=== PATIENT | female | born 2000 | race African-American/Black ===

== ENCOUNTER 2020-11-07 11:00 | Outpatient (CLI) | payer OTHER | END 2020-11-07 11:01 | disposition home or self-care (01) | LOC: CSHULT 11:00 | PROVIDERS: ATTEND Family Medicine | DX: Z34.82 Encounter for supervision of other normal pregnancy, second trimester (principal) | CPT/HCPCS: 76805 ==

== ENCOUNTER 2021-02-28 21:43 | Inpatient (IN) | payer OTHER ==
[2021-02-28] MEDS ORDERED: NS w/ Oxytocin 30 units 500 ML IV SCH (22:03)
[2021-02-28] MEDS ORDERED: Lidocaine 1% (PF) 30 ML VIAL SC PRN (22:03)
[2021-02-28] MEDS ORDERED: Ondansetron PF 4 MG/2 ML Vial IVP PRN (22:03)
[2021-02-28] MEDS ORDERED: Acetaminophen 500 MG TAB PO PRN (22:03)
[2021-02-28] MEDS ORDERED: NS w/ Oxytocin 30 units 500 ML IVPB SCH (22:03)
[2021-02-28] MEDS ORDERED: Promethazine HCl 25 MG/ML VIAL IM PRN (22:03)
[2021-02-28] MEDS ORDERED: Ibuprofen 800 MG TAB PO PRN (22:03)
[2021-02-28] MEDS ORDERED: Misoprostol 200 MCG TAB PR PRN (22:03)
[2021-02-28] MEDS ORDERED: HYDROcodone/Acetaminophen 5/325 mg Tablet PO PRN (22:03)
[2021-02-28] MEDS ORDERED: hydrALAZINE 20 MG/ML VIAL SLOW IVP PRN (22:03)
[2021-02-28] MEDS ORDERED: Carboprost 250 MCG/ML AMP IM PRN (22:03)
[2021-02-28] MEDS ORDERED: Methylergonovine 0.2 MG/ML VIAL IM PRN (22:03)
[2021-02-28] MEDS ORDERED: Diphenoxylate HCl/Atropine Tablet PO PRN (22:03)
[2021-02-28] MEDS: Lactated Ringer's 1,000 ML IV SCH (22:20)
[2021-02-28 22:23] VITALS: BMI 26.6
[2021-02-28] MEDS ORDERED: Penicillin G Potassium 5 MILL.UNITS in Sodium Chloride 0.9% 100 ML IVPB SCH (23:00)
[2021-02-28 23:39] LABS: Hemoglobin 9.4 g/dL (12.0-15.5); Mean Corpuscular HGB CONC 31.9 g/dL (32.0-36.0); Mean Corpuscular Hemoglobin 22.7 pg (27.0-33.0); Mean Corpuscular Volume 71.1 fl (81.6-98.3); Mean Platelet Volume 12.7 fl (7.4-10.4); Platelet Count 202 10x3/uL (150-450); RBC Distribution Width 15.4 % (11.5-14.5); Red Blood Cell (RBC) Count 4.15 10x6/uL (3.90-5.03); White Blood Cell (WBC) Count 10.6 10x3/uL (3.5-10.5)
[2021-02-28] MEDS: Misoprostol 100 MCG TAB PO SCH (23:45)
[2021-02-28 23:57] LABS: Hep B Surf Ag Non-Reactive S/CO (NonReactive)
[2021-02-28 23:58] LABS: Syphilis Antibody Nonreactive (Nonreactive); Syphilis Antibody Index 0.08 S/CO (<1.00 Non-Reactive)
[2021-03-01 00:14] LABS: HBSAg Index 0.15 S/CO (0-0.99)
[2021-03-01] MEDS: Butorphanol Tartrate 1 MG/ML VIAL SLOW IVP PRN ×2 (00:42→04:24)
[2021-03-01] MEDS: Misoprostol 100 MCG TAB PO SCH ×2 (04:21→13:47)
[2021-03-01] MEDS: Penicillin G 2.5 MILL.units 2.5 MILL.UNITS in Premix Bag 1 BAG IVPB SCH ×2 (04:30→13:47)
[2021-03-01] MEDS ORDERED: Fentanyl 2 mcg/Bup 0.1% Cadd 100 ML ONE (05:22)
[2021-03-01] MEDS: Lactated Ringer's 1,000 ML IV SCH (06:15)
[2021-03-01] MEDS ORDERED: Acetaminophen 325 MG TAB PO PRN (06:26)
[2021-03-01] MEDS ORDERED: Lactated Ringer's 500 ML IV PRN (06:26)
[2021-03-01] MEDS ORDERED: Ondansetron PF 4 MG/2 ML Vial IVP PRN ×2 (06:26→08:47)
[2021-03-01] MEDS ORDERED: Naloxone HCl 0.4 mg/ml Vial IVP PRN ×2 (06:26)
[2021-03-01] MEDS ORDERED: ePHEDrine Sulfate 50 MG/10 ML VIAL SLOW IVP PRN (06:26)
[2021-03-01] MEDS ORDERED: Promethazine HCl 25 MG/ML VIAL IM PRN ×2 (06:26→08:47)
[2021-03-01] MEDS ORDERED: Hydrocerin (Eucerin) Cream 120 gm Jar TOP PRN (06:26)
[2021-03-01] MEDS ORDERED: diphenhydrAMINE 50 MG/ML VIAL IVP PRN (06:26)
[2021-03-01] MEDS: NS w/ Oxytocin 30 units 500 ML IV SCH ×2 (06:29→08:43)
[2021-03-01] MEDS ORDERED: Fentanyl 2 mcg/Bupivacaine 0.1% Cassette 100 ML EPIDURAL SCH (06:30)
[2021-03-01] MEDS ORDERED: Communication Order-Pharmacy FS SCH (06:30)
[2021-03-01] MEDS ORDERED: HYDROcodone/Acetaminophen 5/325 mg Tablet PO PRN (08:47)
[2021-03-01] MEDS ORDERED: Lanolin Ointment 7 GM TUBE TOP PRN (08:47)
[2021-03-01] MEDS ORDERED: Boostrix 0.5 ML (Tdap) VIAL IM ONE (08:47)
[2021-03-01] MEDS ORDERED: hydrALAZINE 20 MG/ML VIAL SLOW IVP PRN (08:47)
[2021-03-01] MEDS ORDERED: Milk Of Magnesia 30 ML UDCUP PO PRN (08:47)
[2021-03-01] MEDS ORDERED: Bisacodyl 10 MG SUPP PR PRN (08:47)
[2021-03-01] MEDS ORDERED: diphenhydrAMINE 25 MG CAP PO PRN (08:47)
[2021-03-01] MEDS ORDERED: Benzocaine-Menthol 82.5 ML CAN TOP PRN (08:47)
[2021-03-01] MEDS: HYDROcodone/Acetaminophen 5/325 mg Tablet PO PRN ×2 (10:47→19:54)
[2021-03-01] MEDS: Prenatal Vitamin 1 TAB PO SCH (11:05)
[2021-03-01] MEDS: Docusate Calcium (SURFAK) 240 MG CAP PO SCH ×2 (11:05→21:58)
[2021-03-01] MEDS: Ferrous Sulfate 325 MG TAB PO SCH ×2 (11:05→18:15)
[2021-03-01] MEDS: Ibuprofen 800 MG TAB PO SCH ×2 (15:42→21:58)
[2021-03-02] MEDS: HYDROcodone/Acetaminophen 5/325 mg Tablet PO PRN (02:59)
[2021-03-02] MEDS: Ibuprofen 800 MG TAB PO SCH (06:02)
[2021-03-02 08:02] VITALS: BP 117/58; TEMP 98
[2021-03-02] MEDS: Docusate Calcium (SURFAK) 240 MG CAP PO SCH (08:14)
[2021-03-02] MEDS: Prenatal Vitamin 1 TAB PO SCH (08:14)
[2021-03-02] MEDS: Ferrous Sulfate 325 MG TAB PO SCH (08:14)
== END 2021-03-02 12:40 | disposition home or self-care (01) | DRG 807 ==
LOC: CSHLD 21:43 → CSHPP 03-01 09:20 → EDSTATUS 03-04 16:17
PROVIDERS: ADMIT Family Medicine; ATTEND Family Medicine
PROC: 10E0XZZ Delivery of Products of Conception, External Approach (ICD-10-PCS; principal; 2021-02-28)
PROC: 3E033VJ Introduction of Other Hormone into Peripheral Vein, Percutaneous Approach (ICD-10-PCS; 2021-02-28)
DX: O98.82 Other maternal infectious and parasitic diseases complicating childbirth (principal); Z37.0 Single live birth; B95.1 Streptococcus, group B, as the cause of diseases classified elsewhere; Z3A.39 39 weeks gestation of pregnancy
CPT/HCPCS: 85027; 86780; 86850; 86900; 86901; 87340; J0595; J2540; J2590; J3490

== ENCOUNTER 2024-01-01 17:36 | Emergency (ER) | payer OTHER ==
[2024-01-01 18:32] LABS: #Basophils 0.05 10x3/uL (0.0-0.2); #Eosinphils 0.11 10x3/uL (0.0-0.5); #Monocytes 0.83 10x3/uL (0.0-1.1); %Basophils 0.4 % (0.0-2.0); %Eosinophils 0.9 % (0.0-6.0); %Lymphocytes 24.2 % (18.0-47.0); %Monocytes 7.1 % (0.0-10.0); %Neutrophils 66.9 % (40.0-75.0); Hemoglobin 11.3 g/dL (12.0-15.5); Mean Corpuscular HGB CONC 33.2 g/dL (32.0-36.0); Mean Corpuscular Hemoglobin 24.2 pg (27.0-33.0); Mean Corpuscular Volume 72.8 fL (81.6-98.3); Mean Platelet Volume 11.4 fL (7.4-10.4); Platelet Count 227 10x3/uL (150-450); RBC Distribution Width 14.2 % (11.5-14.5); Red Blood Cell (RBC) Count 4.67 10x6/uL (3.90-5.03); White Blood Cell (WBC) Count 11.7 10x3/uL (3.5-10.5)
[2024-01-01 18:54] LABS: ALT (SGPT) 10 U/L (8-55); AST (SGOT) 14 U/L (5-34); Albumin 2.9 g/dL (3.5-5.0); Alkaline Phosphatase 62 U/L (40-110); Anion Gap 12 mmol/L (10-20); BUN (Urea Nitrogen) 9 mg/dL (7.0-18.7); Bilirubin, Total 0.2 mg/dL (0.2-1.2); Calc. Creatinine Clearance 0 mL/min (70-130); Calcium 9.2 mg/dL (7.8-10.44); Carbon Dioxide 22 mmol/L (22-29); Chloride 105 mmol/L (98-107); Estimated GFR 125; Globulin 3.8 g/dL (2.4-3.5); Glucose 81 mg/dL (70-105); Potassium 3.6 mmol/L (3.5-5.1); Protein, Total 6.7 g/dL (6.0-8.3); Sodium 135 mmol/L (136-145)
[2024-01-01 19:34] LABS: Microcytosis SLIGHT = 6-15 cells (100X) (0-5/hpf)
[2024-01-01 19:35] LABS: Platelet Adequacy Comment Appears Adequate
[2024-01-01 20:22] LABS: Bilirubin Neg (Negative); Blood, Urine 150 (Negative); Clarity Clear (Clear); Glucose, Urine (Dipstick) Normal (Negative); Ketone, Urine Negative (Negative); Leukocyte 500 (Negative); Nitrite Negative (Negative); Protein, Urine (Dipstick) Negative (Neg-Trace)
[2024-01-01 20:29] LABS: Bacteria/HPF 3+ HPF (None Seen); CAUTI Indications for Culture Pregnancy; RBC/HPF 0-3 HPF (0-3); Squamous Epithelial 0-3 HPF (0-3)
[2024-01-01 20:30] LABS: Urine Culture Reflex Yes Yes
== END 2024-01-01 21:35 | disposition home or self-care (01) ==
LOC: CSHERS 17:36
DX: O23.592 Infection of other part of genital tract in pregnancy, second trimester (principal); R82.71 Bacteriuria; Z3A.15 15 weeks gestation of pregnancy
CPT/HCPCS: 36415; 76815; 80053; 81001; 84702; 85025; 86900; 86901; 87086; 87480; 87510; 87660

== ENCOUNTER 2024-05-19 21:24 | Observation (INO) | payer OTHER ==
[2024-05-19 21:43] VITALS: BMI 30.5
[2024-05-19] MEDS ORDERED: Promethazine HCl 25 MG/ML VIAL IM PRN (23:08)
[2024-05-19] MEDS ORDERED: hydrALAZINE 20 MG/ML VIAL SLOW IVP PRN (23:08)
[2024-05-19] MEDS ORDERED: Ondansetron PF 4 MG/2 ML Vial IVP PRN (23:08)
[2024-05-19] MEDS ORDERED: fentaNYL 50 mcg/mL 1 mL Vial SLOW IVP PRN (23:08)
[2024-05-19] MEDS ORDERED: Lidocaine 1% (PF) 30 ML VIAL SC PRN (23:09)
[2024-05-19] MEDS ORDERED: Oxytocin 30 units/NS 500 ML 500 ML IV SCH (23:15)
[2024-05-19] MEDS: Penicillin G Potassium 5 MILL.UNITS in Sodium Chloride 0.9% 100 ML IVPB SCH (23:26)
[2024-05-19 23:27] LABS: Hematocrit 31.4 % (34.9-44.5); Hemoglobin 9.7 g/dL (12.0-15.5); Mean Corpuscular HGB CONC 30.9 g/dL (32.0-36.0); Mean Corpuscular Hemoglobin 22.3 pg (27.0-33.0); Mean Corpuscular Volume 72.2 fL (81.6-98.3); Mean Platelet Volume 12.5 fL (7.4-10.4); Platelet Count 174 10x3/uL (150-450); RBC Distribution Width 15.6 % (11.5-14.5); Red Blood Cell (RBC) Count 4.35 10x6/uL (3.90-5.03); White Blood Cell (WBC) Count 11.9 10x3/uL (3.5-10.5)
[2024-05-19] MEDS: Lactated Ringer's 1,000 ML IV SCH (23:27)
[2024-05-19] MEDS: Betamet Acet/Betamet Na Ph 30 MG/5 ML VIAL IM SCH (23:41)
[2024-05-19 23:56] LABS: HBsAg Index 0.23 S/CO (0-0.99); Hep B Surf Ag - L&D Non-Reactive S/CO (NonReactive)
[2024-05-19 23:57] LABS: Syphilis Antibody Nonreactive (Nonreactive); Syphilis Antibody Index 0.07 S/CO (<1.00 Non-Reactive)
[2024-05-20 00:57] LABS: Bilirubin Neg (Negative); Blood, Urine 150 (Negative); Clarity Clear (Clear); Glucose, Urine (Dipstick) Normal (Negative); Ketone, Urine 150 mg/dL (Negative); Leukocyte 100 (Negative); Nitrite Negative (Negative); Protein, Urine (Dipstick) 15 mg/dl (Neg-Trace)
[2024-05-20 01:17] LABS: Bacteria/HPF 1+ HPF (None Seen)
[2024-05-20] MEDS: Penicillin G 2.5 MILL.units 2.5 MILL.UNITS in Premix 1 BAG IVPB SCH (03:32)
[2024-05-20] MEDS: Acetaminophen 500 MG TAB PO PRN (04:01)
[2024-05-20] MEDS: Famotidine 20 MG TAB PO SCH (22:44)
[2024-05-21 11:13] VITALS: TEMP 98.1
[2024-05-21 16:09] VITALS: BP 129/63
== END 2024-05-21 14:25 | disposition home health service (06) ==
LOC: CSHLD/OP 21:24 → CSHLD 23:08 → CSHANTE 05-20 21:15
PROVIDERS: ADMIT Family Medicine; ATTEND Family Medicine
DX: O47.03 False labor before 37 completed weeks of gestation, third trimester (principal); O24.419 Gestational diabetes mellitus in pregnancy, unspecified control; O23.593 Infection of other part of genital tract in pregnancy, third trimester; B96.89 Other specified bacterial agents as the cause of diseases classified elsewhere; Z3A.35 35 weeks gestation of pregnancy; Z87.51 Personal history of pre-term labor; Z79.82 Long term (current) use of aspirin; Z79.899 Other long term (current) drug therapy
CPT/HCPCS: 36415; 36416; 81001; 85027; 86780; 86850; 86900; 86901; 87340; 87480; 87510; 87660; J0702; J2540; J7120

== ENCOUNTER 2024-06-15 08:47 | Inpatient (IN) | payer OTHER ==
[~2024-06-15 08:47] MED LIST: Bupivacaine 0.25% HCL 30 ML VIAL ONE
[2024-06-15 09:18] VITALS: BMI 35.3
[2024-06-15] MEDS ORDERED: Promethazine HCl 25 MG/ML VIAL IM PRN ×3 (10:02→17:26)
[2024-06-15] MEDS ORDERED: Ondansetron PF 4 MG/2 ML Vial IVP PRN ×3 (10:02→17:26)
[2024-06-15] MEDS ORDERED: Acetaminophen 500 MG TAB PO PRN (10:02)
[2024-06-15] MEDS ORDERED: Tranexamic Acid 1,000 MG/10 ML VIAL IVP PRN (10:02)
[2024-06-15] MEDS ORDERED: Methylergonovine 0.2 MG/ML VIAL IM PRN (10:02)
[2024-06-15] MEDS ORDERED: Lidocaine 1% (PF) 30 ML VIAL SC PRN (10:02)
[2024-06-15] MEDS ORDERED: fentaNYL 50 mcg/mL 1 mL Vial SLOW IVP PRN (10:02)
[2024-06-15] MEDS ORDERED: Diphenoxylate HCl/Atropine Tablet PO PRN (10:02)
[2024-06-15] MEDS ORDERED: HYDROcodone/Acetaminophen 5/325 mg Tablet PO PRN (10:02)
[2024-06-15] MEDS ORDERED: Misoprostol 200 MCG TAB PR PRN (10:02)
[2024-06-15] MEDS ORDERED: Ibuprofen 800 MG TAB PO PRN (10:02)
[2024-06-15] MEDS ORDERED: hydrALAZINE 20 MG/ML VIAL SLOW IVP PRN ×2 (10:02→17:26)
[2024-06-15] MEDS ORDERED: Carboprost 250 MCG/ML AMP IM PRN (10:02)
[2024-06-15] MEDS ORDERED: Oxytocin 30 units/NS 500 ML 500 ML IV SCH (10:15)
[2024-06-15 10:19] LABS: Hematocrit 27.3 % (34.9-44.5); Hemoglobin 8.5 g/dL (12.0-15.5); Mean Corpuscular HGB CONC 31.1 g/dL (32.0-36.0); Mean Corpuscular Hemoglobin 21.6 pg (27.0-33.0); Mean Corpuscular Volume 69.5 fL (81.6-98.3); Platelet Count 168 10x3/uL (150-450); RBC Distribution Width 16.8 % (11.5-14.5); Red Blood Cell (RBC) Count 3.93 10x6/uL (3.90-5.03); White Blood Cell (WBC) Count 8.9 10x3/uL (3.5-10.5)
[2024-06-15] MEDS: Penicillin G Potassium 5 MILL.UNITS in Sodium Chloride 0.9% 100 ML IVPB SCH (10:41)
[2024-06-15 10:44] LABS: HBsAg Index 0.15 S/CO (0-0.99); HIV (1/2) Antibody/Antigen Non-Reactive (NonReactive); HIV 1/2 INDEX 0.11 S/CO (<1.00); Hep B Surf Ag - L&D Non-Reactive S/CO (NonReactive)
[2024-06-15 10:46] LABS: Syphilis Antibody Nonreactive (Nonreactive)
[2024-06-15] MEDS: fentaNYL/Ropivacaine Epidural 100 ML ONE (11:30)
[2024-06-15] MEDS ORDERED: Acetaminophen 325 MG TAB PO PRN (11:39)
[2024-06-15] MEDS ORDERED: Naloxone HCl 0.4 mg/ml Vial IVP PRN ×2 (11:39)
[2024-06-15] MEDS ORDERED: ePHEDrine Sulfate 50 MG/10 ML VIAL SLOW IVP PRN (11:39)
[2024-06-15] MEDS ORDERED: Lactated Ringer's 500 ML IV PRN (11:39)
[2024-06-15] MEDS ORDERED: Moisturizing Cream (Eucerin) 113 GM JAR TOP PRN (11:39)
[2024-06-15] MEDS ORDERED: diphenhydrAMINE 50 MG/ML VIAL IVP PRN (11:39)
[2024-06-15] MEDS ORDERED: fentaNYL 2 mcg/Ropivacaine 0.2% Epidural 100 ML CADD EPIDURAL SCH (11:45)
[2024-06-15] MEDS ORDERED: Communication Order-Pharmacy FS SCH (11:45)
[2024-06-15] MEDS: Oxytocin 30 units/NS 500 ML 500 ML IV SCH ×2 (13:02→15:26)
[2024-06-15] MEDS: Penicillin G 2.5 MILL.units 2.5 MILL.UNITS in Premix 1 BAG IVPB SCH (14:13)
[2024-06-15] MEDS ORDERED: Boostrix 0.5 ML (Tdap) VIAL (>/=7 yrs of age) IM ONE (17:26)
[2024-06-15] MEDS ORDERED: Bisacodyl 10 MG SUPP PR PRN (17:26)
[2024-06-15] MEDS ORDERED: Milk Of Magnesia 30 ML UDCUP PO PRN (17:26)
[2024-06-15] MEDS ORDERED: diphenhydrAMINE 25 MG CAP PO PRN (17:26)
[2024-06-15] MEDS: Ibuprofen 800 MG TAB PO SCH (21:13)
[2024-06-15] MEDS: Docusate 100 MG CAP PO SCH (21:13)
[2024-06-15] MEDS: HYDROcodone/Acetaminophen 5/325 mg Tablet PO PRN (23:23)
[2024-06-16] MEDS: Ferrous Sulfate 325 MG TAB PO SCH (07:59)
[2024-06-16] MEDS: Prenatal Vitamin 1 TAB PO SCH (07:59)
[2024-06-16 11:49] VITALS: BP 138/70; TEMP 98.1
== END 2024-06-16 17:40 | disposition home or self-care (01) | DRG 807 ==
LOC: CSHLD 08:47 → CSHPP 17:30
PROVIDERS: ADMIT Family Medicine; ATTEND Family Medicine
PROC: 10E0XZZ Delivery of Products of Conception, External Approach (ICD-10-PCS; principal; 2024-06-15)
PROC: 10907ZC Drainage of Amniotic Fluid, Therapeutic from Products of Conception, Via Natural or Artificial Opening (ICD-10-PCS; 2024-06-15)
DX: O24.429 Gestational diabetes mellitus in childbirth, unspecified control (principal); Z37.0 Single live birth; O99.214 Obesity complicating childbirth; Z3A.39 39 weeks gestation of pregnancy; Z79.82 Long term (current) use of aspirin; O99.824 Streptococcus B carrier state complicating childbirth
CPT/HCPCS: 36415; 51702; 85027; 86780; 86850; 86900; 86901; 87340; 87389; 99285; J0665; J2540; J2590